=== PATIENT | female | born 1975 | race Caucasian/White ===

== ENCOUNTER 2020-09-04 18:40 | Emergency (ER) | payer OTHER ==
[2020-09-04] MEDS ORDERED: ONDANSETRON 4 MG/2 ML VIAL IVP STA (20:23)
[2020-09-04] MEDS ORDERED: SODIUM CHLORIDE 0.9% 1,000 ML IV STA (20:23)
[2020-09-04] MEDS ORDERED: ACETAMINOPHEN TAB 500 MG TAB PO STA (20:29)
--- NOTE | 2020-09-04 20:35 | ED ---
General Adult HPI - General Source: patient Mode of arrival: ambulatory Limitations: no limitations <Maritza Gardner - Last Filed: 09/04/20 23:57> <Fuentes Garber - Last Filed: 09/06/20 21:43> - General Chief complaint: Abdominal Pain Stated complaint: abd pain, headache, chills Time Seen by Provider: 09/04/20 20:08 - History of Present Illness Initial comments: 45-year-old female presents the emergency Department with complaints of right lower quadrant abdominal pain that radiates to the right flank is accompanied by body aches, fatigue, and nausea. Reports alternating fever and chills. Symptoms began this morning and have increased in severity since this afternoon. Patient reports taking 600 mg of Motrin around 5:00 this evening with minimal improvement. Patient reports a full sensation in her lower abdomen with mild urinary frequency. Patient denies any recent rash, cough, shortness of breath, chest pain,vomiting, diarrhea, constipation, numbness, tingling, dizziness, hematuria, dysuria, urinary urgency, headache, visual changes, or any other complaints. (Maritza Gardner) - Related Data Home Medications Medication Instructions Recorded Confirmed Ascorbic Acid [Vitamin C] 500 mg PO DAILY 09/04/20 09/04/20 Catalyn 1 tab PO DAILY 09/04/20 09/04/20 Cider Vinegar [Apple Cider Vinegar] 600 mg PO BID 09/04/20 09/04/20 Ibuprofen [Motrin Ib] 800 mg PO Q8H PRN 09/04/20 09/04/20 Previous Rx's Medication Instructions Recorded Acetaminophen [Tylenol] 650 mg PO Q6HR PRN #28 capsule 09/04/20 Allergies Allergy/AdvReac Type Severity Reaction Status Date / Time codeine Allergy Anaphylaxis Verified 09/04/20 21:12 hydrocodone [From Vicodin] Allergy Anaphylaxis Verified 09/04/20 21:12 Penicillins Allergy Rash/Hives Verified 09/04/20 21:12 prednisone Allergy Unknown Verified 09/04/20 21:12 Review of Systems ROS Other: All systems not noted in ROS Statement are negative. <Maritza Gardner - Last Filed: 09/04/20 23:57> ROS Other: All systems not noted in ROS Statement are negative. <Fuentes Garber - Last Filed: 09/06/20 21:43> ROS Statement: Those systems with pertinent positive or pertinent negative responses have been documented in the HPI. Past Medical History Past Medical History: No Reported History History of Any Multi-Drug Resistant Organisms: None Reported Past Surgical History: No Surgical Hx Reported Past Psychological History: No Psychological Hx Reported Smoking Status: Never smoker Past Alcohol Use History: None Reported Past Drug Use History: None Reported <Maritza Gardner - Last Filed: 09/04/20 23:57> General Exam Limitations: no limitations (Well-developed, well-nourished female in no acute distress. Initial temperature 101.6F, pulse 104, respirations 18, blood pressure 118/81, pulse ox 98% on room air.) General appearance: alert, in no apparent distress Respiratory exam: Present: normal lung sounds bilaterally. Absent: respiratory distress, wheezes, rales, rhonchi, stridor Cardiovascular Exam: Present: regular rate, normal rhythm, tachycardia, normal heart sounds. Absent: systolic murmur, diastolic murmur, rubs, gallop, clicks GI/Abdominal exam: Present: soft, tenderness (Right lower quadrant abdominal pain upon palpation), normal bowel sounds. Absent: distended, guarding, rigid Back exam: Present: CVA tenderness (R) Neurological exam: Present: alert, oriented X3, CN II-XII intact Psychiatric exam: Present: normal affect, normal mood Skin exam: Present: warm, dry, intact, normal color. Absent: rash <Maritza Gardner - Last Filed: 09/04/20 23:57> Course Vital Signs 09/04/20 09/04/20 09/04/20 19:01 22:03 23:58 Temperature 101.6 F H 98.6 F 98.6 F Pulse Rate 104 H 78 78 Respiratory 18 16 18 Rate Blood Pressure 118/81 105/61 106/62 O2 Sat by Pulse 98 98 98 Oximetry Medical Decision Making - Lab Data Result diagrams: 09/04/20 21:58 09/04/20 21:58 - Radiology Data Radiology results: report reviewed <Maritza Gardner - Last Filed: 09/04/20 23:57> - Lab Data Result diagrams: 09/04/20 21:58 09/04/20 21:58 <Fuentes Garber - Last Filed: 09/06/20 21:43> - Medical Decision Making 45-year-old female presents emergency Department with complaints of right lower quadrant abdominal pain that radiates around to the right flank. States pain began this morning, then developed a fever this afternoon. Initial temperature is 101.5F. Patient reports feeling achy all over and slightly nauseous. Denies any known sick contacts. Patient took Motrin this evening prior to arrival. Acetaminophen was given to treat fever, IV access was obtained, patient received 1 L of fluid and 4 mg of Zofran; reports feeling improved. No significant findings in her lab work. CT of the abdomen and pelvis did show a right ovarian cyst and that the appendix is upper limits of normal size but was not inflamed. Results were discussed with patient. Did offer admission to monitor for possible early appendicitis. She would prefer to be discharged home to monitor her symptoms. Return parameters were discussed in great detail. Encouraged to follow-up with her primary care provider for recheck, as well as with her DIRECT CARE STAFFER for further evaluation of the ovarian cyst. Patient verbalizes understanding and agrees with this plan. (Maritza Gardner) I saw this patient in conjunction with the physician pediatric medical assistant. I performed independent history and physical exam. Agree with case management. (Fuentes Garber) - Lab Data Lab Results 09/04/20 09/04/20 09/04/20 Range/Units 21:58 21:58 21:58 WBC 9.5 (3.8-10.6) k/uL RBC 4.51 (3.80-5.40) m/uL Hgb 12.9 (11.4-16.0) gm/dL Hct 39.4 (34.0-46.0) % MCV 87.3 (80.0-100.0) fL MCH 28.6 (25.0-35.0) pg MCHC 32.7 (31.0-37.0) g/dL RDW 12.6 (11.5-15.5) % Plt Count 246 (150-450) k/uL MPV 7.1 Neutrophils % 90 % Lymphocytes % 6 % Monocytes % 4 % Eosinophils % 0 % Basophils % 0 % Neutrophils # 8.5 H (1.3-7.7) k/uL Lymphocytes # 0.6 L (1.0-4.8) k/uL Monocytes # 0.3 (0-1.0) k/uL Eosinophils # 0.0 (0-0.7) k/uL Basophils # 0.0 (0-0.2) k/uL Sodium 135 L (137-145) mmol/L Potassium 3.9 (3.5-5.1) mmol/L Chloride 107 (98-107) mmol/L Carbon Dioxide 22 (22-30) mmol/L Anion Gap 6 mmol/L BUN 10 (7-17) mg/dL Creatinine 0.58 (0.52-1.04) mg/dL Est GFR (CKD-EPI)AfAm >90 (>60 ml/min/1.73 sqM) Est GFR (CKD-EPI)NonAf >90 (>60 ml/min/1.73 sqM) Glucose 118 H (74-99) mg/dL Plasma Lactic Acid Wallace (0.7-2.0) mmol/L Calcium 9.0 (8.4-10.2) mg/dL Total Bilirubin 0.5 (0.2-1.3) mg/dL AST 21 (14-36) U/L ALT 14 (4-34) U/L Alkaline Phosphatase 72 (38-126) U/L Total Protein 7.1 (6.3-8.2) g/dL Albumin 4.2 (3.5-5.0) g/dL Lipase 96 (23-300) U/L Urine Color Yellow Urine Appearance Turbid H (Clear) Urine pH 6.0 (5.0-8.0) Ur Specific [place] 1.039 H (1.001-1.035) Urine Protein 1+ H (Negative) Urine Glucose (UA) Negative (Negative) Urine Ketones Negative (Negative) Urine Blood Trace H (Negative) Urine Nitrite Negative (Negative) Urine Bilirubin Negative (Negative) Urine Urobilinogen <2.0 (<2.0) mg/dL Ur Leukocyte Esterase Negative (Negative) Amorphous Sediment Occasional H (None) /hpf Urine Bacteria Few H (None) /hpf Urine Mucus Occasional H (None) /hpf Urine HCG, Qual (Not Detectd) Influenza Type A RNA (Not Detectd) Influenza Type B (PCR) (Not Detectd) 09/04/20 09/04/20 09/04/20 Range/Units 21:58 21:58 21:58 WBC (3.8-10.6) k/uL RBC (3.80-5.40) m/uL Hgb (11.4-16.0) gm/dL Hct (34.0-46.0) % MCV (80.0-100.0) fL MCH (25.0-35.0) pg MCHC (31.0-37.0) g/dL RDW (11.5-15.5) % Plt Count (150-450) k/uL MPV Neutrophils % % Lymphocytes % % Monocytes % % Eosinophils % % Basophils % % Neutrophils # (1.3-7.7) k/uL Lymphocytes # (1.0-4.8) k/uL Monocytes # (0-1.0) k/uL Eosinophils # (0-0.7) k/uL Basophils # (0-0.2) k/uL Sodium (137-145) mmol/L Potassium (3.5-5.1) mmol/L Chloride (98-107) mmol/L Carbon Dioxide (22-30) mmol/L Anion Gap mmol/L BUN (7-17) mg/dL Creatinine (0.52-1.04) mg/dL Est GFR (CKD-EPI)AfAm (>60 ml/min/1.73 sqM) Est GFR (CKD-EPI)NonAf (>60 ml/min/1.73 sqM) Glucose (74-99) mg/dL Plasma Lactic Acid Wallace 1.3 (0.7-2.0) mmol/L Calcium (8.4-10.2) mg/dL Total Bilirubin (0.2-1.3) mg/dL AST (14-36) U/L ALT (4-34) U/L Alkaline Phosphatase (38-126) U/L Total Protein (6.3-8.2) g/dL Albumin (3.5-5.0) g/dL Lipase (23-300) U/L Urine Color Urine Appearance (Clear) Urine pH (5.0-8.0) Ur Specific [place] (1.001-1.035) Urine Protein (Negative) Urine Glucose (UA) (Negative) Urine Ketones (Negative) Urine Blood (Negative) Urine Nitrite (Negative) Urine Bilirubin (Negative) Urine Urobilinogen (<2.0) mg/dL Ur Leukocyte Esterase (Negative) Amorphous Sediment (None) /hpf Urine Bacteria (None) /hpf Urine Mucus (None) /hpf Urine HCG, Qual Not Detected (Not Detectd) Influenza Type A RNA Not Detected (Not Detectd) Influenza Type B (PCR) Not Detected (Not Detectd) - Radiology Data CT of the abdomen and pelvis was obtained with contrast. Impression per Dr. Rob is the appendix is upper limits of normal size. No sign of inflammation. There are a few pericecal lymph nodes. No renal stone or obstr uction. (Maritza Gardner) Disposition Is patient prescribed a controlled substance at d/c from ED?: No Time of Disposition: 23:30 <Maritza Gardner - Last Filed: 09/04/20 23:57> <Fuentes Garber - Last Filed: 09/06/20 21:43> Clinical Impression: Ovarian cyst, Abdominal pain Disposition: HOME SELF-CARE Condition: Good Instructions (If sedation given, give patient instructions): Ovarian Cyst (ED), Acute Abdominal Pain (ED) Additional Instructions: Monitor temperature and return with fever, increased abdominal pain, or persistent vomiting. Follow-up with your primary care provider for recheck in the next few days. Call your DIRECT CARE STAFFER for further evaluation of the ovarian cyst. Return to the emergency department with any new, worsening, or concerning symptoms. Prescriptions: Acetaminophen [Tylenol] 650 mg PO Q6HR PRN #28 capsule PRN Reason: PAIN/FEVER Referrals: Anuel Orozco Jr, DO [Primary Care Provider] - 1-2 days
[2020-09-04 22:14] LABS: Basophils % (A) 0 %; Eosinophils % (A) 0 %; HCT 39.4 % (34.0-46.0); HGB 12.9 gm/dL (11.4-16.0); Lymphocytes # (A) 0.6 k/uL (1.0-4.8); Lymphocytes % (A) 6 %; MCH 28.6 pg (25.0-35.0); MCHC 32.7 g/dL (31.0-37.0); MCV 87.3 fL (80.0-100.0); Mean Platelet Volume 7.1; Monocytes # (A) 0.3 k/uL (0-1.0); Monocytes % (A) 4 %; Neutrophils # (A) 8.5 k/uL (1.3-7.7); Neutrophils % (A) 90 %; Platelet Count 246 k/uL (150-450); RBC 4.51 m/uL (3.80-5.40); RDW 12.6 % (11.5-15.5); WBC 9.5 k/uL (3.8-10.6)
[2020-09-04 22:22] LABS: ALT 14 U/L (4-34); AST 21 U/L (14-36); African American GFR (CKD) >90 (>60 ml/min/1.73 sqM); Albumin 4.2 g/dL (3.5-5.0); Alkaline Phosphatase 72 U/L (38-126); Anion Gap 6 mmol/L; Blood Urea Nitrogen 10 mg/dL (7-17); Carbon Dioxide 22 mmol/L (22-30); Chloride 107 mmol/L (98-107); Glucose 118 mg/dL (74-99); Lipase 96 U/L (23-300); Non-African American GFR(CKD) >90 (>60 ml/min/1.73 sqM); Potassium 3.9 mmol/L (3.5-5.1); Sodium 135 mmol/L (137-145); Total Bilirubin 0.5 mg/dL (0.2-1.3); Total Protein 7.1 g/dL (6.3-8.2)
[2020-09-04 22:24] LABS: Amorphous Sediment,Urine Occasional /hpf; Appearance,Urine Turbid (Clear); Bacteria,Urine Few /hpf; Bilirubin,Urine Negative (Negative); Blood,Urine Trace (Negative); Color,Urine Yellow; Glucose,Urine (UA) Negative (Negative); Ketones,Urine Negative (Negative); Leukocyte Esterase,Urine Negative (Negative); Mucus,Urine Occasional /hpf; Nitrite,Urine Negative (Negative); Protein,Urine 1+ (Negative); Specific Gravity,Urine 1.039 (1.001-1.035); Urobilinogen,Urine <2.0 mg/dL (<2.0)
[2020-09-04 22:40] VITALS: PULSE 78; TEMP 98.6
--- NOTE | 2020-09-04 23:03 | CT ---
EXAMINATION TYPE: CT abdomen pelvis w con DATE OF EXAM: 09/04/2020 COMPARISON: None HISTORY: pain CT DLP: 747.30 mGycm Automated exposure control for dose reduction was used. CONTRAST: Performed with IV Contrast, patient injected with 100 mL of Isovue 300. Images obtained from the diaphragm to the floor the pelvis with IV contrast. Lung bases show mild subsegmental atelectasis. Heart size is normal. There is no pericardial effusion . There is 1.5 cm cyst in the superior right lobe of the liver. The bile ducts are not dilated. Gallbla dder appears normal. Spleen is intact. There is no pancreatic mass. Stomach is intact. There is no adrenal mass. Kidneys show satisfactory contrast opacification. There is no hydronephrosi s. Delayed images show normal renal excretion. Ureters are not dilated. There is no retroperitoneal a denopathy. Bladder distends smoothly. Uterus is anteverted. The cul-de-sac is clear fluid. I see no e vidence of a pelvic mass. Appendix is posterior and appears upper limit of normal diameter. Appendix measures 9 mm but there is no surrounding inflammation. There is normal air in the appendix. There ar e pericecal lymph nodes that measure 10 mm. There is 2 x 1.5 cm cyst on the right ovary. Lumbar vertebra have normal alignment. Disc spaces are normal. Posterior elements are intact. The bon y pelvis is intact. Hip joints are intact. IMPRESSION: The appendix is upper limit of normal size but no sign of inflammation. There are a few pericecal lym ph nodes. No renal stone or obstruction.
[2020-09-04] MEDS ORDERED: ONDANSETRON ODT 4 MG TAB PO STA (23:23)
[2020-09-05] VITALS: BP 106/62; RESP 18
== END 2020-09-05 | disposition home or self-care (01) ==
LOC: EC 18:40
DX: N83.201 Unspecified ovarian cyst, right side (principal); Z88.0 Allergy status to penicillin; Z88.5 Allergy status to narcotic agent; Z88.6 Allergy status to analgesic agent; Z88.8 Allergy status to other drugs, medicaments and biological substances
CPT/HCPCS: 36415; 80053; 83605; 83690; 85025; 81001; 81025; 87040; 87502; 74177; 99284; 96374; 96361; U0003; J2405